=== PATIENT | male | born 1955 | race Caucasian/White ===

== ENCOUNTER → 2018-11-12 | Outpatient (CLI) | payer MEDICARE | LOC: GMAH 10:27 | PROVIDERS: ATTEND Family Medicine | DX: E78.2 Mixed hyperlipidemia (principal); Z12.5 Encounter for screening for malignant neoplasm of prostate | CPT/HCPCS: 84443; 84550; G0103 ==

== ENCOUNTER → 2019-05-20 | Outpatient (CLI) | payer MEDICARE | LOC: GMA MATASK 12:03 | PROVIDERS: ATTEND Family Medicine | DX: Z12.5 Encounter for screening for malignant neoplasm of prostate (principal); E78.2 Mixed hyperlipidemia ==

== ENCOUNTER → 2020-04-06 | Outpatient (CLI) | payer MEDICARE, OTHER | LOC: GMA MATASK 11:40 | PROVIDERS: ATTEND Family Medicine | DX: E78.2 Mixed hyperlipidemia (principal); Z12.5 Encounter for screening for malignant neoplasm of prostate | CPT/HCPCS: 84550; G0103 ==

== ENCOUNTER 2020-10-18 10:14 | Inpatient (IN) | payer MEDICARE, OTHER ==
--- NOTE | 2020-10-18 12:08 | RAD ---
Study: Frontal and Lateral Radiographs of the Chest. Indication: SOB, COVID PNE. Comparison: October 17, 2020 Impression: Heart size normal. Patchy opacities throughout the bilateral lungs redemonstrated and slightly progressed concerning for pneumonia. COVID-19 could give this appearance. No pleural effusion or pneumothorax. Degenerative changes of the spine noted. Electronically signed by: Arpan Diop MD 10/18/2020 12:06 PM [facility]
--- NOTE | 2020-10-18 14:26 | ED.PDOC ---
History of Present Illness - General Chief Complaint: Respiratory Problem Stated Complaint: +COVID,low sats at home Time Seen by Provider: 10/18/20 10:49 Source: patient, family Exam Limitations: no limitations - History of Present Illness Initial Comments: SOB. COVID POS OCT 08. STARTED ON AZITHROMYCIN AND DEXAMETHASONE. PT STOPPED DEXAMETHASONE IT WAS SPIKING HIS GLUCOSE. SOB TODAY. DR. BRITO SENT TO ER FOR POSSIBLE ADMISSION. Timing/Duration: 1 week Severity: moderate Improving Factors: nothing Worsening Factors: nothing Associated Symptoms: shortness of breath, weakness Allergies/Adverse Reactions: Allergies NO KNOWN ALLERGY Allergy (Verified 06/23/15 10:16) Home Medications: Ambulatory Orders Insulin Aspart [Novolog Flexpen] 5 unit SC DAILY 10/18/20 Insulin Aspart [Novolog Flexpen] 10 unit SC .LUNCH AND BEDTIME 10/18/20 Insulin Glargine [Lantus Solostar] 30 unit SC BEDTIME 10/18/20 Review of Systems - Review of Systems Constitutional: States: chills, fever, malaise, weakness EENTM: Denies: ear pain, nose congestion Respiratory: States: short of breath. Denies: cough Cardiology: Denies: chest pain, palpitations Gastrointestinal/Abdominal: Denies: abdominal pain, nausea Genitourinary: States: no symptoms reported Musculoskeletal: States: other - MYALGIAS Skin: States: no symptoms reported Neurological: States: no symptoms reported Endocrine: States: no symptoms reported Hematologic/Lymphatic: States: no symptoms reported All other Systems: Reviewed and Negative Past Medical History (General) - Patient Medical History Hx Stroke: No Hx Congestive Heart Failure: No Hx Diabetes: Yes Hx Cancer: No Hx Hepatitis C: No - Vaccination History Hx Influenza Vaccination: Yes Hx Pneumococcal Vaccination: Yes - Social History Hx Tobacco Use: No Hx Chewing Tobacco Use: No Hx Alcohol Use: No Family Medical History - Family History Mother Family History: No Known Physical Exam - Physical Exam General Appearance: Alert, Ill Appearing Eye Exam: bilateral normal Ears, Nose, Throat: normal ENT inspection, normal pharynx Neck: non-tender, full range of motion, supple Respiratory: lungs clear, normal breath sounds Cardiovascular/Chest: regular rate, rhythm, no murmur Peripheral Pulses: radial,right: 2+, radial,left: 2+ Gastrointestinal/Abdominal: non tender, soft Rectal Exam: deferred Back Exam: no CVA tenderness Extremity: non-tender, normal inspection Neurologic: no motor/sensory deficits, alert, normal mood/affect Skin Exam: normal color, warm/dry Lymphatic: no adenopathy Progress - Progress Progress: 10/18/20 14:25 COVID POS. COVID PNE PER CXR (PATCHY INFILTRATES). DYSPNEA. SATS DROPPPING, CURRENTLY 91% RA. HE WILL NEED INPATIENT FOR 02 SUPPLEMENTATION. SHERMAN STACY ACCEPTED ADMISSION. THANK YOU, [facility], FOR ACCEPTING FURTHER CARE. GLUC 219. CRP, LD, DDIMER ELEVATED, C/W COVID IFXN. Departure - Departure Clinical Impression: COVID-19 virus infection, Hypoxia, Elevated C-reactive protein (CRP), Pneumonia due to COVID-19 virus Disposition: Admit Patient Home Medications: Ambulatory Orders Insulin Aspart [Novolog Flexpen] 5 unit SC DAILY 10/18/20 Insulin Aspart [Novolog Flexpen] 10 unit SC .LUNCH AND BEDTIME 10/18/20 Insulin Glargine [Lantus Solostar] 30 unit SC BEDTIME 10/18/20 Decision To Admit - Decistion To Admit Decision to Admit Reason: Admit from ER Decision to Admit Date: 10/18/20 Decision to Admit Time: 17:00
--- NOTE | 2020-10-18 15:16 | HP ---
SUPERVISING PHYSICIAN: Jaswant Harrington MD CHIEF COMPLAINT: Previous COVID diagnosis with worsening shortness of breath and fever. HISTORY OF PRESENT ILLNESS: Mr. Lomeli is a 65-year-old male patient who was initially seen on 10/08/20 and was found to be positive for COVID. At that time, he was started on azithromycin and Decadron. He stopped taking his Decadron due to the fact that he is diabetic and was having high glucoses. He was seen in the clinic today by Dr. Lin, his primary care physician, and found to be short of breath at which time Dr. Lin requested the patient be sent to the ER for direct admission and further workup. Review of his records show that his initial labs show D-dimer was barely elevated at 348, C-reactive protein 1.4, white count 6.5. In the ER, initial vital signs showed he was actually saturating right at 94% on room air, but we desaturating into the mid 80s with any ambulation efforts. He was running a slight fever at 99.4. Laboratory studies showed white count 6,400 with differential showing a left shift. Chemistries showed glucose 236, C-reactive protein 4.7 compared to initial of 1.4. Liver functions were all within normal limits. D-dimer was elevated at 625 compared to initial of 348. He was once again swabbed for COVID and found to be positive. His chest x-ray in the clinic initially did show findings concerning for viral pneumonia. Repeat chest x-ray in the ER again showed patchy opacities throughout the bilateral lungs concerning for pneumonia. Given his worsening symptoms and increasing shortness of breath and hypoxic on room air and ambulation, he is going t be admitted for further of underlying COVID pneumonitis complicated by advanced age and diabetes. He was admitted on stable condition. PAST MEDICAL HISTORY: 1. Diabetes mellitus, type 2, on insulin. PAST SURGICAL HISTORY: No surgeries listed. HOME MEDICATIONS: 1. Insulin glargine 30 units at bedtime. 2. NovoLog FlexPen 5 units daily. 3. NovoLog FlexPen 10 units at dinner and lunch. ALLERGIES: NO KNOWN DRUG ALLERGIES. FAMILY HISTORY: Noncontributory to current admission. SOCIAL HISTORY: The patient has never smoked. He currently works for [employer] in [place], [place]. He is and lives in [place]. He does not drink alcohol. REVIEW OF SYSTEMS: CONSTITUTIONAL: Positive for general malaise, fever, weakness. HEENT: Denies headaches, sore throats, earaches, nasal congestion, vision changes. RESPIRATORY: Positive for shortness of breath with cough. CARDIOVASCULAR: Denies chest pain, palpitations or syncopal episodes. GASTROINTESTINAL: Denies nausea, vomiting, diarrhea, constipation or abdominal pain. GENITOURINARY: Denies dysuria, hematuria, polyuria. MUSCULOSKELETAL: General malaise, but denies any joint swelling. SKIN: Denies lesions, rashes, moles or unexplained changes. NEUROLOGIC: Denies ataxia, seizures, paresthesias or other motor or sensory focal deficits. HEMATOLOGIC: Denies unexplained bleeding, bruising or transfusion reactions. PHYSICAL EXAMINATION: VITAL SIGNS: Temperature 99.4, pulse 85, blood pressure 160/72, respirations 20, saturation 94% on room air at rest with desaturation into the mid 80s with exertion. GENERAL: The patient is resting comfortably in no acute distress. He is alert. HEENT: Tympanic membranes clear bilaterally. Oropharynx is pink, moist without any lesions. NECK: Supple, nontender with full range of motion. No jugular venous distention noted. RESPIRATORY: Lung sounds are fairly clear, just diminished towards the bases with no obvious rhonchi, wheezes or rales. CARDIOVASCULAR: Regular rate and rhythm without any appreciable murmurs, gallops, or rubs. ABDOMEN: Soft, nontender. Positive bowel sounds. RECTAL: Deferred. BACK: No CVA or vertebral tenderness. EXTREMITIES: There is no cyanosis, clubbing or edema. NEUROLOGIC: Cranial nerves II-XII are grossly intact. The patient is alert and oriented times three. SKIN: Warm, pink and dry. LABORATORY: White count 6,400 with a slight left shift. Coagulation studies showed D-dimer 625. Chemistries show normal electrolytes, creatinine 0.77. Blood sugar 219. Liver functions within normal limits. C-reactive protein 4.7, troponin 0.03. Urinalysis showed 500 glucose, 80 ketones. MICROBIOLOGY: COVID swab positive. RADIOLOGY: Chest x-ray, single view, shows multiple patchy opacities throughout the bilateral lungs. Comparison to 10/17/20 with slight progression, concerning for pneumonia. No pleural effusions or pneumothorax noted. ASSESSMENT: 1. COVID pneumonitis. 2. Developing pneumonia secondary to #1. 3. Diabetes mellitus, type 2, on insulin. PLAN: Mr. Lomeli is going to be admitted for continuation of treatment of COVID pneumonitis and developing pneumonia. I will start him on Remdesivir, Rocephin, azithromycin and Decadron. He will be on Align, Protonix and guaifenesin. We will have promethazine and Phenergan cough syrup as needed. He will be on DVT prophylaxis with Lovenox. We will follow his labs per COVID protocol. I anticipate his length of stay to be at least 2 to 3 days. He will be on sliding scale insulin per protocol. He will be on ADA diet. He will be on aggressive bronchial hygiene and oxygen to maintain O2 saturations greater than 94%. Until we can titrate oxygen down and his labs trend down to more acceptable levels and he is showing clinical stability and can transition to outpatient management, we will continue to monitor and treat as needed. #[id number] [facility] [place]
[2020-10-18] MEDS ORDERED: ACETAMINOPHEN 500 MG TAB PO ONE (15:30)
[2020-10-18] MEDS ORDERED: GLUCAGON INJ 1 MG VIAL SUBCU PRN (16:55)
[2020-10-18] MEDS ORDERED: ONDANSETRON INJ 4 MG/2 ML VIAL IV PRN (16:55)
[2020-10-18] MEDS ORDERED: MAGNESIUM HYDROXIDE 30 ML UD PO PRN (16:55)
[2020-10-18] MEDS ORDERED: DEXTROSE 50% 25 GM/50 ML SYG IV PRN (16:55)
[2020-10-18] MEDS ORDERED: ALBUTEROL INHALER 64 PUFF/8GM INH PRN (16:58)
[2020-10-18] MEDS ORDERED: DEXAMETHASONE INJ 10 MG/ML VIAL IV ONE (17:05)
[2020-10-18] MEDS ORDERED: cefTRIAXone SODIUM 1 GM in SODIUM CHL 0.9% 50ML MIN-BAG+ 50 ML IVPB SCH (18:00)
[2020-10-18] MEDS ORDERED: AZITHROMYCIN IV 500 MG VIAL IVPB ONE (18:05)
[2020-10-18] MEDS ORDERED: SODIUM CHLORIDE 0.9% 250ML 250 ML ONE ×2 (18:05→19:18)
[2020-10-18] MEDS: IV SET AND CAP CHANGE INJ INJ SCH (18:21)
[2020-10-18] MEDS: AZITHROMYCIN IV 500 MG in SODIUM CHLORIDE 0.9% 250ML 250 ML IVPB SCH (18:21)
[2020-10-18] MEDS ORDERED: cefTRIAXone SODIUM 1 GM VIAL ONE (19:18)
[2020-10-18] MEDS ORDERED: REMDESIVIR IV 100 MG VIAL ONE (19:19)
[2020-10-18] MEDS ORDERED: SODIUM CHL 0.9% 50ML MIN-BAG+ 50 ML IVPB ONE (19:19)
[2020-10-18] MEDS: INSULIN LISPRO 100 UNITS/ML PEN SUBCU SCH (20:18)
[2020-10-18] MEDS: ENOXAPARIN SODIUM 40 MG/0.4 ML SYG SUBCU SCH (20:19)
[2020-10-18] MEDS: cefTRIAXone SODIUM 1 GM in SODIUM CHL 0.9% 50ML MIN-BAG+ 50 ML IVPB SCH (20:21)
[2020-10-18] MEDS: REMDESIVIR 200 MG in SODIUM CHLORIDE 0.9% 250ML 250 ML IVPB ONE ×2 (20:50→21:00)
[2020-10-18] MEDS: PROMETHAZINE W/CODEINE SYR 6.25 MG/10 MG/5 ML UD PO PRN (22:00)
[2020-10-19] MEDS: PROMETHAZINE W/CODEINE SYR 6.25 MG/10 MG/5 ML UD PO PRN (05:09)
[2020-10-19] MEDS: PANTOPRAZOLE SODIUM IV 40 MG VIAL IV SCH (06:05)
--- NOTE | 2020-10-19 07:32 | RAD ---
EXAM DESCRIPTION: Chest,1 View CLINICAL HISTORY: 65 years Male, COVID COMPARISON: October 18, 2020 TECHNIQUE: AP portable chest. FINDINGS: Compared to previous day's study improved appearance of the lung delgado is noted with residual peripheral hazy infiltrative changes in the midlung field as well as in the infrahilar regions on each side. Some clearing of infiltrative changes at the lateral left lung base noted with the upper normal cardiac size. No pleural effusions or Central adenopathy or hilar enlargement noted. Vascularity is normal. IMPRESSION: Improved appearance of the chest with partial clearing of patchy predominantly infrahilar and peripheral infiltrates. Upper normal heart size without cardiac decompensation. Electronically signed by: Vladimir Seals MD 10/19/2020 7:30 AM STATION MECH[employer]IC
[2020-10-19] MEDS: INSULIN LISPRO 100 UNITS/ML PEN SUBCU SCH ×5 (07:49→20:32)
[2020-10-19] MEDS ORDERED: DEXAMETHASONE INJ 4 MG/ML VIAL ONE (08:02)
[2020-10-19] MEDS ORDERED: REMDESIVIR IV 100 MG VIAL ONE (08:02)
[2020-10-19] MEDS ORDERED: SODIUM CHLORIDE 0.9% 250ML 250 ML ONE (08:04)
[2020-10-19] MEDS: DEXAMETHASONE INJ 10 MG/ML VIAL IV SCH (08:35)
[2020-10-19] MEDS: REMDESIVIR 100 MG in SODIUM CHLORIDE 0.9% 250ML 250 ML IVPB SCH (08:36)
[2020-10-19] MEDS: BIFIDOBACTERIUM INFANTIS 4 MG CAP PO SCH (08:36)
[2020-10-19] MEDS: INSULIN DETEMIR 100 UNITS/ML PEN SUBCU SCH ×2 (12:15→20:33)
[2020-10-19] MEDS: AZITHROMYCIN IV 500 MG in SODIUM CHLORIDE 0.9% 250ML 250 ML IVPB SCH (16:48)
--- NOTE | 2020-10-19 19:24 | PN ---
SUPERVISING PHYSICIAN: Jaswant Harrington M.D. DATE: 10/19/20 SUBJECTIVE: The patient is doing okay. He actually has required some increase in oxygen demands now. He was maintaining fairly decent room air O2 but now has required 3 liters just to maintain above 93%. No chest pains reported. No nausea, vomiting or diarrhea. OBJECTIVE: VITAL SIGNS: Temperature 97.7, pulse 83, blood pressure 138/68, respirations 18, satting 93% on 3 liters nasal cannula at rest. GENERAL: The patient looks to be resting comfortably in no acute distress. He is alert. CHEST: Fairly clear, just diminished a little bit towards the bases. HEART: Regular rate and rhythm. ABDOMEN: Soft, non-tender. Positive bowel sounds. EXTREMITIES: No edema. NEUROLOGIC: He is alert and oriented times three. LABORATORY: White count 2,800, hemoglobin 14.9, hematocrit 45.0, platelet count 215,000. Differential does show a left shift but no bands. Coagulation studies shows a d-dimer of 672. Chemistries showing normal electrolytes, creatinine 0.89, blood sugars are running between 275 and 317, calcium 8.1. Liver functions are within normal limits. RADIOLOGY: Chest x-ray this morning per radiology interpretation showed improved appearance of the chest with partial clearing of patchy predominant infrahilar and peripheral infiltrates. ASSESSMENT: 1. COVID pneumonitis. 2. Bilateral pneumonia secondary to #1. 3. Diabetes mellitus, type 2, on insulin with persistent elevated blood sugars requiring more aggressive management. PLAN: Will continue with COVID treatment and pneumonitis and pneumonia with Remdesivir, Rocephin, azithromycin and Decadron. He is on Align, Protonix and Mucinex. We are utilizing Phenergan with codeine for cough. He is on DVT prophylaxis with Lovenox. Will continue to follow his labs as per protocol. His blood sugars are significantly elevated. I have added additional a.c. coverage with a sliding scale plus added b.i.d. Levemir. We may have to adjust this to see if we can get his blood sugars down. Will continue to monitor. He is now requiring oxygen at least 3 liters to maintain 93%. Will continue to monitor this and titrate oxygen as needed. I anticipate he will probably need at least another 1 or 2 days before he will be able to transition to outpatient management. Until then will continue to monitor and treat as needed. #[id number] [facility]
[2020-10-19] MEDS: cefTRIAXone SODIUM 1 GM in SODIUM CHL 0.9% 50ML MIN-BAG+ 50 ML IVPB SCH (20:15)
[2020-10-19] MEDS: ENOXAPARIN SODIUM 40 MG/0.4 ML SYG SUBCU SCH (20:31)
[2020-10-19] MEDS: ACETAMINOPHEN 325 MG TAB PO PRN (20:31)
[2020-10-20] MEDS: PANTOPRAZOLE SODIUM IV 40 MG VIAL IV SCH (06:22)
[2020-10-20] MEDS: BIFIDOBACTERIUM INFANTIS 4 MG CAP PO SCH (09:24)
[2020-10-20] MEDS: DEXAMETHASONE INJ 10 MG/ML VIAL IV SCH (09:24)
[2020-10-20] MEDS: REMDESIVIR 100 MG in SODIUM CHLORIDE 0.9% 250ML 250 ML IVPB SCH (09:24)
[2020-10-20] MEDS: SODIUM CHLORIDE 0.9% (FLUSH) 10 ML SYG IV PRN (09:25)
[2020-10-20] MEDS: INSULIN LISPRO 100 UNITS/ML PEN SUBCU SCH ×7 (10:13→21:17)
[2020-10-20] MEDS: INSULIN DETEMIR 100 UNITS/ML PEN SUBCU SCH ×2 (10:16→21:18)
[2020-10-20] MEDS: ALBUTEROL INHALER 64 PUFF/8GM INH SCH ×3 (13:00→20:30)
[2020-10-20] MEDS: AZITHROMYCIN IV 500 MG in SODIUM CHLORIDE 0.9% 250ML 250 ML IVPB SCH (16:49)
--- NOTE | 2020-10-20 18:33 | PN ---
SUPERVISING PHYSICIAN: Jaswant Harrington M.D. DATE: 10/20/20 SUBJECTIVE: The patient is sitting up in bed. We discussed his plan of care. He has denied any chest pain, nausea or vomiting. He continues to be short of breath but that has improved. OBJECTIVE: VITAL SIGNS: Temperature 98, heart rate 73, blood pressure 148/70, respiratory rate 18, O2 saturation 93% on 3 liters nasal cannula. RESPIRATORY: Diminished at the bases. CARDIAC: Regular rate and rhythm. NEUROLOGIC: He is awake, alert and oriented times three. LABORATORY: WBCs are 6,400 with hemoglobin 13.9, hematocrit 42.2. D-dimer is 293, fibrinogen 420. Electrolytes are within normal limits with the exception of his calcium is low at 7.9. LD is 206, creatinine kinase 30, C reactive protein 4.4. All other labs and films have been reviewed via the EMR. ASSESSMENT: 1. COVID pneumonitis. 2. Bilateral pneumonia secondary to #1. 3. Diabetes mellitus, type 2, on insulin. PLAN: We will continue present supportive care, including the COVID-19 guidelines. Will order an ambulation study and continue to titrate off his oxygen as tolerated. He will have labs and chest x-ray in the morning. We will follow and treat as needed. #[id number] [facility]
[2020-10-20] MEDS ORDERED: guaiFENesin ER TAB 600 MG TAB ONE (19:39)
[2020-10-20] MEDS: cefTRIAXone SODIUM 1 GM in SODIUM CHL 0.9% 50ML MIN-BAG+ 50 ML IVPB SCH (20:56)
[2020-10-20] MEDS: ACETAMINOPHEN 325 MG TAB PO PRN (21:09)
[2020-10-20] MEDS: ENOXAPARIN SODIUM 40 MG/0.4 ML SYG SUBCU SCH (21:09)
[2020-10-20] MEDS: guaiFENesin ER TAB 600 MG TAB PO SCH (21:09)
[2020-10-21] MEDS ORDERED: PANTOPRAZOLE SODIUM TAB 40 MG PO ONE (04:42)
[2020-10-21] MEDS: PANTOPRAZOLE SODIUM TAB 40 MG PO SCH (05:52)
--- NOTE | 2020-10-21 06:24 | RAD ---
EXAM: XR Chest, 1 View CLINICAL HISTORY: COVID TECHNIQUE: Frontal view of the chest. COMPARISON: 10/19/2020 FINDINGS: Lungs: Increasing multifocal bilateral interstitial and airspace consolidates. Pleural space: No pneumothorax. No pleural effusion. Heart: Stable cardiac shadow. Mediastinum: No abnormality noted. Bones/joints: No osseous destruction or sclerosis noted. IMPRESSION: Worsening covid pneumonia. Electronically signed by: Cinthia Villagran MD 10/21/2020 6:22 AM SITE LEADER
[2020-10-21] MEDS: INSULIN DETEMIR 100 UNITS/ML PEN SUBCU SCH ×2 (09:00→20:39)
[2020-10-21] MEDS: BIFIDOBACTERIUM INFANTIS 4 MG CAP PO SCH (09:07)
[2020-10-21] MEDS: DEXAMETHASONE INJ 10 MG/ML VIAL IV SCH (09:07)
[2020-10-21] MEDS: REMDESIVIR 100 MG in SODIUM CHLORIDE 0.9% 250ML 250 ML IVPB SCH (09:07)
[2020-10-21] MEDS: guaiFENesin ER TAB 600 MG TAB PO SCH ×2 (09:08→20:41)
[2020-10-21] MEDS: ALBUTEROL INHALER 64 PUFF/8GM INH SCH ×4 (09:20→20:30)
[2020-10-21] MEDS: INSULIN LISPRO 100 UNITS/ML PEN SUBCU SCH ×7 (12:28→20:41)
[2020-10-21] MEDS ORDERED: CHLORPHENIRAMINE W/HYDROCODONE 5 ML UD PO PRN (15:48)
[2020-10-21] MEDS ORDERED: BENZONATATE PERLES 100 MG CAP PO PRN (15:48)
[2020-10-21] MEDS ORDERED: POLYETHYLENE GLYCOL 3350 17 GM PCKT PO ONE (15:55)
[2020-10-21] MEDS: AZITHROMYCIN IV 500 MG in SODIUM CHLORIDE 0.9% 250ML 250 ML IVPB SCH (17:47)
[2020-10-21] MEDS: IV SET AND CAP CHANGE INJ INJ SCH (17:47)
[2020-10-21] MEDS: cefTRIAXone SODIUM 1 GM in SODIUM CHL 0.9% 50ML MIN-BAG+ 50 ML IVPB SCH (19:30)
[2020-10-21] MEDS: ENOXAPARIN SODIUM 40 MG/0.4 ML SYG SUBCU SCH (20:41)
--- NOTE | 2020-10-21 22:47 | PN ---
SUPERVISING PHYSICIAN: Jaswant Harrington M.D. DATE: 10/21/20 SUBJECTIVE: The patient is sitting up in bed. He does feel much better, although he still gets short of breath, especially with exertion. At this point we have been unable to get him off of oxygen. Will repeat his ambulation study tomorrow. He does get exertionally hypoxic. OBJECTIVE: VITAL SIGNS: Temperature 97.6, heart rate 63, blood pressure 152/76, respiratory rate 18, O2 saturation 91% at 1 liter nasal cannula. RESPIRATORY: Somewhat diminished at the bases, otherwise clear to auscultation. CARDIAC: Regular rate and rhythm. NEUROLOGIC: He is awake, alert and oriented times three. LABORATORY: WBCs are 7,600 with hemoglobin 14, hematocrit 41.7. He has a left shift on his differential. Fibrinogen 420, D-dimer 293. Electrolytes are basically within normal limits with the exception of his calcium is low at 8. Chest x-ray shows worsening COVID pneumonia. All other labs and films have been reviewed via the EMR. ASSESSMENT: 1. COVID pneumonitis. 2. Bilateral pneumonia secondary to #1. 3. Diabetes mellitus, type 2. PLAN: We will continue present supportive care, including the COVID guidelines and medications. I will repeat his lab and chest x-ray in the morning. I have also ordered another ambulation study in case he needs to be discharged with oxygen. I have encouraged him to get up and ambulate in the room as well as get up to the chair in his room. Hopefully he can be discharged in the next 1 to 2 days. Will follow and treat as needed. #[id number] [facility]
[2020-10-22] MEDS: PANTOPRAZOLE SODIUM TAB 40 MG PO SCH (06:06)
[2020-10-22] MEDS: ALBUTEROL INHALER 64 PUFF/8GM INH SCH ×4 (08:00→21:09)
--- NOTE | 2020-10-22 08:32 | RAD ---
EXAM: XR Chest, 1 View CLINICAL HISTORY: covid TECHNIQUE: Frontal view of the chest. COMPARISON: 10/21/2020 FINDINGS: Lungs: Increased bilateral interstitial and airspace consolidates. Pleural space: No pneumothorax. No pleural effusion. Heart: Normal cardiac size and configuration. Mediastinum: No abnormality noted. Bones/joints: No osseous destruction or sclerosis noted. IMPRESSION: Worsening covid pneumonia. Electronically signed by: Cinthia Villagran MD 10/22/2020 8:31 AM MACHINE SETTER [employer]IC
[2020-10-22] MEDS: REMDESIVIR 100 MG in SODIUM CHLORIDE 0.9% 250ML 250 ML IVPB SCH (09:24)
[2020-10-22] MEDS: BIFIDOBACTERIUM INFANTIS 4 MG CAP PO SCH (09:25)
[2020-10-22] MEDS: guaiFENesin ER TAB 600 MG TAB PO SCH ×2 (09:25→20:28)
[2020-10-22] MEDS: SODIUM CHLORIDE 0.9% (FLUSH) 10 ML SYG IV PRN (09:25)
[2020-10-22] MEDS: DEXAMETHASONE INJ 10 MG/ML VIAL IV SCH (09:25)
[2020-10-22] MEDS: INSULIN LISPRO 100 UNITS/ML PEN SUBCU SCH ×7 (11:32→20:33)
[2020-10-22] MEDS: INSULIN DETEMIR 100 UNITS/ML PEN SUBCU SCH ×2 (11:33→20:33)
[2020-10-22] MEDS: AZITHROMYCIN IV 500 MG in SODIUM CHLORIDE 0.9% 250ML 250 ML IVPB SCH (17:36)
[2020-10-22] MEDS: cefTRIAXone SODIUM 1 GM in SODIUM CHL 0.9% 50ML MIN-BAG+ 50 ML IVPB SCH (19:47)
[2020-10-22] MEDS: TEMAZEPAM 15 MG CAP PO PRN (20:28)
[2020-10-22] MEDS: ENOXAPARIN SODIUM 40 MG/0.4 ML SYG SUBCU SCH (20:28)
[2020-10-23] MEDS: PANTOPRAZOLE SODIUM TAB 40 MG PO SCH (05:46)
[2020-10-23] MEDS: ALBUTEROL INHALER 64 PUFF/8GM INH SCH ×3 (08:00→16:00)
[2020-10-23] MEDS: INSULIN LISPRO 100 UNITS/ML PEN SUBCU SCH ×7 (08:03→20:16)
--- NOTE | 2020-10-23 08:56 | PN ---
SUPERVISING PHYSICIAN: Jaswant Harrington M.D. DATE: 10/22/20 SUBJECTIVE: The patient is walking around in his room. He still requires oxygen to keep his saturations above 90%, especially with exertion. I spoke with him and his via telephone about patient's progress and that hopefully he would continue to improve to the point that he could be discharged tomorrow or the next day. I explained that his chest x-ray had worsened and that he would need to get up and move as much as possible without compromising his oxygenation status. OBJECTIVE: VITAL SIGNS: Temperature 98.1, heart rate 72, blood pressure 135/74, respiratory rate 20, oxygen saturation 95% on room air at rest. He does drop to the upper 80s with exertion and requires supplemental oxygen. RESPIRATORY: Diminished throughout. CARDIAC: Regular rate and rhythm. NEUROLOGIC: He is awake, alert and oriented times three. LABORATORY: CBC is unremarkable. Fibrinogen 400, D-dimer 481. Electrolytes are within normal limits with the exception of his calcium is low at 8. AST 192, ALT 252, LD 352, creatinine kinase 26, C-reactive protein 1.3. Chest x-ray shows worsening COVID pneumonia. ASSESSMENT: 1. COVID-19 pneumonitis. 2. Bilateral pneumonia secondary to #1. 3. Diabetes mellitus, type 2. PLAN: We will continue present supportive care. I have ordered physical therapy as well as encouraging him to get up to the chair and to walk around in his room. Physical therapy will see him and evaluate his safety for discharge. I will order another exertional study for tomorrow. His Remdesivir has been discontinued due to his elevated LFTs. We will need to monitor his liver function at discharge. Hopefully he can be discharged in the next 24 to 48 hours. [facility][id number] [facility]
[2020-10-23] MEDS: BIFIDOBACTERIUM INFANTIS 4 MG CAP PO SCH (09:00)
[2020-10-23] MEDS: guaiFENesin ER TAB 600 MG TAB PO SCH ×2 (09:00→20:15)
[2020-10-23] MEDS: DEXAMETHASONE INJ 10 MG/ML VIAL IV SCH (09:00)
--- NOTE | 2020-10-23 10:40 | RAD ---
EXAM: Chest,1 View HISTORY: COVID COMPARISON: Chest 1 View AP TECHNIQUE: Chest 1 View AP FINDINGS: Moderate decreased inspiration (decreased lung volumes) makes evaluation more difficult. Heart size within normal limits. No significant change in moderate patchy hazy bilateral lung opacities. No significant pleural effusion or pneumothorax. Diffuse decreased bone density. IMPRESSION: No significant change in moderate patchy hazy bilateral lung opacities. Electronically signed by: Doug Odom MD 10/23/2020 10:39 AM [facility]
[2020-10-23] MEDS: INSULIN DETEMIR 100 UNITS/ML PEN SUBCU SCH ×2 (12:46→20:15)
[2020-10-23] MEDS: cefTRIAXone SODIUM 1 GM in SODIUM CHL 0.9% 50ML MIN-BAG+ 50 ML IVPB SCH (20:13)
[2020-10-23] MEDS: ENOXAPARIN SODIUM 40 MG/0.4 ML SYG SUBCU SCH (20:14)
[2020-10-23] MEDS ORDERED: TEMAZEPAM 15 MG CAP ONE (23:36)
[2020-10-23] MEDS: TEMAZEPAM 15 MG CAP PO PRN (23:38)
[2020-10-24] MEDS: PANTOPRAZOLE SODIUM TAB 40 MG PO SCH (05:48)
--- NOTE | 2020-10-24 06:30 | RAD ---
EXAM: XR Chest, 1 View CLINICAL HISTORY: covid TECHNIQUE: Frontal view of the chest. COMPARISON: 10/23/2020 FINDINGS: Lungs: Stable bilateral groundglass and superimposed consolidative infiltrates. Pleural space: No pneumothorax. No pleural effusion. Heart: Stable cardiac shadow. Mediastinum: No abnormality noted. Bones/joints: No osseous destruction or sclerosis noted. IMPRESSION: Stable abnormalities as above. Electronically signed by: Cinthia Villagran MD 10/24/2020 6:28 AM [employer] HE[employer] CARE SOCIAL WORKER
[2020-10-24] MEDS: INSULIN LISPRO 100 UNITS/ML PEN SUBCU SCH ×4 (07:56→13:00)
--- NOTE | 2020-10-24 08:32 | PN ---
SUPERVISING PHYSICIAN: Jaswant Harrington M.D. DATE: 10/23/20 SUBJECTIVE: The patient has been walking around in his room. We discussed his discharge for tomorrow. He is feeling much better, but we are unable to get him off oxygen as his O2 saturations drop into the mid 80s with exertion. OBJECTIVE: VITAL SIGNS: Temperature 98.6, heart rate 79, blood pressure 143/73, respiratory rate 20, oxygen saturation 94% on 3 liters nasal cannula. RESPIRATORY: Essentially clear to auscultation. CARDIAC: Regular rate and rhythm. NEUROLOGIC: He is awake, alert and oriented times three. LABORATORY: Blood sugar has run between 97 and 248. RADIOLOGY: Chest x-ray shows no significant change in moderate patchy hazy bilateral lung opacities. ASSESSMENT: 1. COVID-19 pneumonitis. 2. Bilateral pneumonia secondary to #1. 3. Diabetes mellitus, type 2. PLAN: We will continue present supportive care. I ordered an ambulation study as the patient was unable to get off O2 as he desaturates into the upper 80s with any exertion. The paperwork has been initiated on home oxygen and he will need to go home on oxygen. I have ordered routine labs for in the morning as well as a chest x-ray. The patient is clinically very much improved. Hopefully, he can be discharged on Saturday. #[id number] [facility]
[2020-10-24 09:15] VITALS: TEMP 97.7
[2020-10-24] MEDS: guaiFENesin ER TAB 600 MG TAB PO SCH (09:44)
[2020-10-24] MEDS: DEXAMETHASONE INJ 10 MG/ML VIAL IV SCH (09:44)
[2020-10-24] MEDS: BIFIDOBACTERIUM INFANTIS 4 MG CAP PO SCH (09:44)
[2020-10-24] MEDS: INSULIN DETEMIR 100 UNITS/ML PEN SUBCU SCH (09:44)
[2020-10-24 13:19] VITALS: BP 151/75; O2SAT 94
--- NOTE | 2020-10-24 15:22 | DS ---
SUPERVISING PHYSICIAN: Vladimir Khan MD ADMISSION DIAGNOSIS: 1. COVID pneumonitis. 2. Developing pneumonia secondary to #1. 3. Diabetes mellitus, type 2, on insulin therapy. DISCHARGE DIAGNOSIS: 1. COVID pneumonitis. 2. Developing pneumonia secondary to #1. 3. Diabetes mellitus, type 2, on insulin therapy. HOSPITAL COURSE: This is a 65-year-old male patient who was initially seen on 10/08/20 and found to be COVID positive at that time. He was started on azithromycin and dexamethasone. He stopped taking his dexamethasone due to the fact he is diabetic and was having high glucoses. He was seen at the clinic by Dr. Lin and found to be short of breath. At that time, Dr. Lin sent the patient to the ER for further workup. In the ER, he was found to have a minimally elevated D-dimer at 348. CRP was 1.4, white blood cell count normal. O2 saturation was 94% on room air, but he desaturated into the mid 80s upon exertion. He had a low grade fever at 99.4 as well. Due to the desaturations with exertion, the patient was referred for admission. Throughout the admission, he required a little bit more oxygen to be used even at rest. However, over his time here, he has not required any significant increase in oxygen and his symptoms have improved. Labs have remained pretty much unremarkable and initially had elevations in his D-dimer, but they have subsequently reduced back to normal at 391. Chemistry is also unremarkable. Glucose has been fairly stable. The patient will be discharged today in stable condition. I have discharged with a 5-day course of Omnicef as well as dexamethasone. Additional, I have resumed his home medications that he is on and put him on a bronchodilator with scheduled albuterol MDI. He can followup with Dr. Lin next week. An order has been written for oxygen therapy as well. He may need to purchase an oximeter to ensure his O2 saturations stay greater than 92%. He is stable today and in good condition to go home. #[id number] [facility]
== END 2020-10-24 15:30 | disposition home or self-care (01) | DRG 177 ==
LOC: ER 10:14 → MS 15:15
PROVIDERS: ADMIT Nurse Practitioner Family; ATTEND Nurse Practitioner
PROC: XW033E5 Introduction of Remdesivir Anti-infective into Peripheral Vein, Percutaneous Approach, New Technology Group 5 (ICD-10-PCS; principal; 2020-10-18)
DX: U07.1 COVID-19 (principal); J12.82 Pneumonia due to coronavirus disease 2019; E11.65 Type 2 diabetes mellitus with hyperglycemia; R79.89 Other specified abnormal findings of blood chemistry; Z79.4 Long term (current) use of insulin